=== PATIENT | female | born 1970 | race Caucasian/White ===

== ENCOUNTER 2019-02-28 09:28 | Outpatient (CLI) | payer BC ==
[2019-02-28 11:06] LABS: ALANINE AMINOTRANSFERASE 29 U/L (12-78); ALBUMIN 3.5 g/dL (3.4-5.0); ANION GAP 5 mmol/L (5-15); CALCIUM 8.9 mg/dL (8.5-10.1); CHLORIDE 110 mmol/L (98-107); CREATININE 0.96 mg/dL (0.55-1.02)
[2019-02-28 11:21] LABS: ALKALINE PHOSPHATASE 81 U/L (45-117); BILIRUBIN,TOTAL 0.5 mg/dL (0.2-1.0); TOTAL PROTEIN 7.4 g/dL (6.4-8.2)
[2019-02-28] MEDS ORDERED: METF500T17 PO (14:45)
[2019-02-28] MEDS ORDERED: INSU100V5 SQ-INSULIN (14:45)
[2019-02-28] MEDS ORDERED: ATOR10TA PO (14:45)
== END 2019-02-28 23:59 | disposition home or self-care (01) ==
LOC: STAR 09:28
PROVIDERS: ATTEND Surgery Vascular Surgery
DX: Z01.818 Encounter for other preprocedural examination (principal); K43.2 Incisional hernia without obstruction or gangrene
CPT/HCPCS: 36415; 80053; 93005

== ENCOUNTER 2019-03-05 07:13 | Inpatient (IN) | payer BC ==
[~2019-03-05] VITALS: Ht 154.9 cm; Wt 83.7 kg
[~2019-03-05 07:13] MED LIST: ATOR10TA PO; INSU100V5 SQ-INSULIN; METF500T17 PO
[2019-03-05] MEDS ORDERED: BACITRACIN 50,000 UNIT ONE (07:39)
[2019-03-05] MEDS ORDERED: BUPIVACAINE/PF-EPI 0.5% 1:200K ONE (07:39)
[2019-03-05] MEDS ORDERED: LACTATED RINGERS 1,000 ML IV SCH (07:52)
[2019-03-05 07:57] VITALS: BP 137/84
[2019-03-05] MEDS ORDERED: INSULIN SINGLE DOSE, ER SQ-INSULIN ONE (08:26)
[2019-03-05] MEDS ORDERED: INSULIN REGULAR 100 UNITS/ML, 3ML VIAL SQ-INSULIN ONE (08:30)
[2019-03-05] MEDS ORDERED: MIDAZOLAM 1 MG/ML, 2ML ONE (09:19)
[2019-03-05] MEDS ORDERED: FENTANYL PF 100 MCG/2ML ONE ×2 (09:19→10:45)
[2019-03-05] MEDS ORDERED: KETOROLAC 30 MG/1 ML ONE (09:19)
[2019-03-05] MEDS ORDERED: ALBUTEROL SULFATE 2.5 MG/3 ML NPPB PRN (10:00)
[2019-03-05] MEDS ORDERED: DIAZEPAM 5 MG/ML, 2ML IVPush PRN (10:00)
[2019-03-05] MEDS ORDERED: LABETALOL 5MG/ML, 20ML IV PRN (10:00)
[2019-03-05] MEDS ORDERED: MEPERIDINE/PF 25MG/0.5ML IVPush PRN (10:00)
[2019-03-05] MEDS ORDERED: OXYcodone 5 MG/5 ML ORAL.SOL UDC PO PRN (10:00)
[2019-03-05] MEDS ORDERED: PROMETHAZINE 25 MG/ML, 1ML IV PRN (10:00)
[2019-03-05] MEDS ORDERED: ACETAMINOPHEN 325 MG TABLET PO PRN (10:00)
[2019-03-05] MEDS ORDERED: hydrALAzine 20 MG/ML, 1ML IV PRN (10:00)
[2019-03-05] MEDS ORDERED: CEFAZOLIN 1,000 MG ONE (10:26)
[2019-03-05] MEDS ORDERED: ONDANSETRON 2MG/ML, 2ML ONE (10:26)
[2019-03-05] MEDS ORDERED: SUCCINYLCHOLINE 20 MG/ML, 10ML ONE (10:26)
[2019-03-05] MEDS ORDERED: NEOSTIGMINE 1 MG/ML, 10ML ONE (10:26)
[2019-03-05] MEDS ORDERED: DEXAMETHASONE 4 MG/ML, 1ML ONE (10:26)
[2019-03-05] MEDS ORDERED: PROPOFOL 10 MG/ML, 20ML ONE (10:26)
[2019-03-05] MEDS ORDERED: ROCURONIUM 10MG/ML,5ML ONE (10:26)
[2019-03-05] MEDS ORDERED: GLYCOPYRROLATE 0.2MG/1ML, 5ML ONE (10:26)
[2019-03-05] MEDS ORDERED: OXYcodone 5 MG/5 ML ORAL.SOL UDC ONE (10:45)
[2019-03-05] MEDS ORDERED: HYDROmorphone 2 MG/ML, 1ML ONE (10:45)
[2019-03-05] MEDS: FENTANYL PF 100 MCG/2ML IV PRN ×2 (10:48→10:59)
[2019-03-05] MEDS: HYDROmorphone 2 MG/ML, 1ML IVPush PRN ×2 (10:55→11:12)
[2019-03-05 12:07] VITALS: BP 133/68
[2019-03-05] MEDS: SODIUM CHLORIDE 0.9% 1,000 ML IV SCH ×2 (12:30→23:34)
[2019-03-05] MEDS ORDERED: morphine SULFATE 10 MG/ML, 1ML IV PRN (12:30)
[2019-03-05] MEDS ORDERED: ENTER SLIDING SCALE INSULIN IF ORDERED XX PRN (12:30)
[2019-03-05 13:00] VITALS: BP 139/57
[2019-03-05] MEDS: INSULIN REGULAR, HUMAN 100 UNIT/ML 3ML VIAL LOW DOSE SS SQ-INSULIN SCH ×2 (16:00→21:27)
[2019-03-05] MEDS: OXYcodone/APAP 5/325MG TABLET PO PRN ×2 (16:29→20:41)
[2019-03-05] MEDS: CEFAZOLIN PMX 1GM/50ML 50 ML IVPB SCH (18:08)
[2019-03-05] MEDS: KETOROLAC 30 MG/1 ML IV PRN (19:28)
[2019-03-05 19:37] VITALS: BP 137/71
[2019-03-05 23:23] VITALS: BP 107/58
[2019-03-06] MEDS: CEFAZOLIN PMX 1GM/50ML 50 ML IVPB SCH (01:53)
[2019-03-06] MEDS: KETOROLAC 30 MG/1 ML IV PRN ×2 (03:57→20:58)
[2019-03-06] MEDS: OXYcodone/APAP 5/325MG TABLET PO PRN ×4 (03:57→22:17)
[2019-03-06 04:00] VITALS: BP 97/54
[2019-03-06] MEDS: ENOXAPARIN 30 MG/0.3 ML SQ SCH ×2 (06:21→18:06)
[2019-03-06] MEDS: INSULIN REGULAR, HUMAN 100 UNIT/ML 3ML VIAL LOW DOSE SS SQ-INSULIN SCH ×4 (07:45→20:59)
[2019-03-06 08:32] VITALS: BP 99/51
[2019-03-06] MEDS: SODIUM CHLORIDE FLUSH 10ML SYR IVF SCH ×2 (09:00→20:59)
[2019-03-06 14:49] VITALS: BP 113/57
[2019-03-06 19:37] VITALS: BP 110/63
[2019-03-06] MEDS: ATORVASTATIN 40 MG TABLET PO SCH (20:58)
[2019-03-07 01:43] VITALS: BP 99/64
[2019-03-07 05:24] LABS: CREATININE 0.95 mg/dL (0.55-1.02)
[2019-03-07] MEDS: ENOXAPARIN 30 MG/0.3 ML SQ SCH ×2 (06:33→17:57)
[2019-03-07 06:55] VITALS: BP 118/72
[2019-03-07 07:00] VITALS: BP 126/60
[2019-03-07] MEDS: INSULIN REGULAR, HUMAN 100 UNIT/ML 3ML VIAL LOW DOSE SS SQ-INSULIN SCH ×4 (07:42→21:59)
[2019-03-07] MEDS: SODIUM CHLORIDE FLUSH 10ML SYR IVF SCH ×2 (07:42→21:45)
[2019-03-07] MEDS: OXYcodone/APAP 5/325MG TABLET PO PRN ×3 (07:46→21:59)
[2019-03-07 13:20] VITALS: BP 102/66
[2019-03-07 18:44] VITALS: BP 109/56
[2019-03-07] MEDS: ATORVASTATIN 40 MG TABLET PO SCH (21:45)
[2019-03-08 02:03] VITALS: BP 124/56
[2019-03-08 06:30] VITALS: BP 133/73
[2019-03-08] MEDS: ENOXAPARIN 30 MG/0.3 ML SQ SCH (06:45)
[2019-03-08] MEDS: SODIUM CHLORIDE FLUSH 10ML SYR IVF SCH (08:33)
[2019-03-08] MEDS: INSULIN REGULAR, HUMAN 100 UNIT/ML 3ML VIAL LOW DOSE SS SQ-INSULIN SCH ×2 (08:33→11:11)
[2019-03-08] MEDS ORDERED: HYDR-3240 PO (08:56)
[2019-03-08 12:40] VITALS: BP 110/58
[2019-03-08] MEDS: OXYcodone/APAP 5/325MG TABLET PO PRN (14:33)
== END 2019-03-08 15:00 | disposition home health service (06) | DRG 337 ==
LOC: OUT 07:13 → 4NOR 11:40 → OUT 12:38 → DCLOUNGE 03-08 14:55
PROVIDERS: ADMIT Surgery Vascular Surgery; ATTEND Surgery Vascular Surgery
PROC: 0DNW0ZZ Release Peritoneum, Open Approach (ICD-10-PCS; 2019-03-05)
PROC: 0WUF0JZ Supplement Abdominal Wall with Synthetic Substitute, Open Approach (ICD-10-PCS; principal; 2019-03-05 09:00)
DX: K43.2 Incisional hernia without obstruction or gangrene (principal); K66.0 Peritoneal adhesions (postprocedural) (postinfection); E11.9 Type 2 diabetes mellitus without complications; E66.9 Obesity, unspecified; E78.5 Hyperlipidemia, unspecified; Z85.43 Personal history of malignant neoplasm of ovary; Z90.49 Acquired absence of other specified parts of digestive tract; Z90.710 Acquired absence of both cervix and uterus; Z68.34 Body mass index [BMI] 34.0-34.9, adult
CPT/HCPCS: 36415; 82565; 82962; 84520; C1729; G0378; J0690; J1100; J1170; J1650; J1815; J1885; J2250; J2405; J2704; J2710; J3010; C1781; J0330; J7030; J7120